=== PATIENT | female | born 1945 | race Caucasian/White ===

== ENCOUNTER → 2017-04-06 | Outpatient (CLI) | payer OTHER, MEDICARE | LOC: MRI 10:18 | DX: M25.461 Effusion, right knee (principal) ==

== ENCOUNTER 2017-04-17 05:18 | Day surgery (SDC) | payer OTHER, MEDICARE ==
[~2017-04-17] VITALS: Ht 165.1 cm; Wt 70.8 kg
--- NOTE | ~2017-04-17 | O ---
[facility] [place] [address] OPERATIVE REPORT Name: LILLIANA DRUMMOND Room #: 150-12 [facility]..#: [id number] Admission: 04/17/17 Attend Phys: Nam Dos Santos MD Discharge: Date of : 41 Report #: [id number] THIS REPORT FOR: //name// CC: Demetria Dos Santos DATE OF SERVICE: 04/17/2017 PREOPERATIVE DIAGNOSIS: Right knee medial meniscus tear. 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 PROCEDURES: Right knee arthroscopy, partial medial meniscectomy, chondroplasty of patella and lateral meniscectomy. SURGEON: Nam Dos Santos MD ANESTHESIA: General. INDICATIONS: See hospital H and P. DESCRIPTION OF PROCEDURE: After adequate general anesthesia had been obtained, the patient's right lower extremity was prepped and draped in the usual meticulous sterile fashion. Limb was exsanguinated with gravity, tourniquet inflated to 300 torr. Superomedial portal was established by first infiltrating with 0.5% Naropin, then making a stab incision with an 11 blade. Inflow cannula was placed. The knee was insufflated with fluid. Anterolateral and anteromedial portals were established utilizing the same technique. Complete diagnostic arthroscopy was performed. Medial compartment demonstrated a flap tear of the meniscus posterior horn. This was debrided with baskets and esteban to a stable rim. Chondral surfaces were preserved. Cruciate ligaments were intact. Lateral compartment demonstrated a radial tear, central body. This was smoothed with a shaver. Otherwise, unremarkable. Patellofemoral compartment demonstrated normal appearing trochlea but she did have on the medial facet of the patella, significant chondral wear with a small area of grade 4 change superiorly. The unstable chondral fragments were smoothed with a shaver. At this time, the knee was irrigated copiously. A 0.5% Naropin was infiltrated [address] [address] OPERATIVE REPORT Name: LILLIANA DRUMMOND Sylvester Room #: 150-[address] [place] [address].#: [id number] Admission: 04/17/17 Attend Phys: Nam Dos Santos MD Discharge: Date of : 41 Report #: [id number] into the knee. The portals were closed with 4-0 nylon. Sterile compressive dressing applied. Tourniquet deflated. <ELECTRONICALLY SIGNED> By: Nam Dos Santos MD 04/17/17 1539 [id number] Nam Dos Santos MD /nt
[~2017-04-17 05:18] MED LIST: CALCIUM 600 +1 EAC1 PO; MULTIVITAMINS1 EAC7 PO; TYLENOL325 MG PO
[2017-04-17 11:16] VITALS: BP 150/89
[2017-04-17 13:35] VITALS: BP 150/89
== END 2017-04-17 14:15 | disposition home or self-care (01) ==
LOC: TBA 05:18 → OR 05:18 → TBA 05:19 → OR 09:47
DX: S83.241A Other tear of medial meniscus, current injury, right knee, initial encounter (principal); S83.281A Other tear of lateral meniscus, current injury, right knee, initial encounter; M22.41 Chondromalacia patellae, right knee; Z87.891 Personal history of nicotine dependence; Z85.528 Personal history of other malignant neoplasm of kidney; Z85.42 Personal history of malignant neoplasm of other parts of uterus; Z90.710 Acquired absence of both cervix and uterus; Z98.890 Other specified postprocedural states; Z88.0 Allergy status to penicillin; Z88.2 Allergy status to sulfonamides; X58.XXXA Exposure to other specified factors, initial encounter; Y93.89 Activity, other specified; Y92.89 Other specified places as the place of occurrence of the external cause; Y99.8 Other external cause status
CPT/HCPCS: 50010; 50101; 50405; 51038; 54170; 56526; 62110; 62900; 70005